=== PATIENT | male | born 1965 | race Caucasian/White ===

== ENCOUNTER 2017-01-15 06:58 | Emergency (ER) | payer MEDICAID ==
[~2017-01-15 06:58] MED LIST: ALBU8I INH; PRED20 PO
[2017-01-15 07:00] VITALS: BP 128/77; PULSE 70; RESP 20; TEMP 97.5; O2SAT 97
[2017-01-15 07:31] VITALS: O2SAT 98
[2017-01-15 07:32] LABS: AUTOMATED NEUTROPHIL # 7.4 TH/MM3 (1.8-7.7); BASOPHIL # 0.1 TH/MM3 (0-0.2); BASOPHIL % 0.7 % (0.0-2.0); EOSINOPHIL # 1.6 TH/MM3 (0-0.4); HEMATOCRIT 44.6 % (39.0-51.0); HEMO FLAGS DIFF FINAL; LYMPH % 21.9 % (9.0-44.0); LYMPHOCYTE # 2.9 TH/MM3 (1.0-4.8); MEAN CELL VOLUME 95.6 FL (80.0-100.0); MEAN CORPUSCULAR HEMOGLOBIN 32.2 PG (27.0-34.0); MEAN CORPUSCULAR HGB CONC 33.6 % (32.0-36.0); MONO % 8.8 % (0.0-8.0); NEUT % 56.6 % (16.0-70.0); PLATELET COUNT 266 TH/MM3 (150-450); RED BLOOD COUNT 4.66 MIL/MM3 (4.50-5.90); WHITE BLOOD COUNT 13.1 TH/MM3 (4.0-11.0)
[2017-01-15 07:33] LABS: BLOOD, URINE NEG (NEG); GLUCOSE,URINE NEG (NEG); KETONE, URINE NEG (NEG); NITRITE,URINE NEG (NEG); URINE COLOR YELLOW (YELLW/STRAW)
[2017-01-15 07:49] LABS: ALT (GPT) 25 U/L (12-78); ANION GAP 6 MEQ/L (5-15); AST (GOT) 16 U/L (15-37); BICARBONATE 26.6 MEQ/L (21.0-32.0); BLOOD UREA NITROGEN 18 MG/DL (7-18); CHLORIDE 108 MEQ/L (98-107); GLOMERULAR FILTRATION RATE 71 ML/MIN (>89); POTASSIUM 3.8 MEQ/L (3.5-5.1); SODIUM (NA) 141 MEQ/L (136-145)
[2017-01-15 07:51] LABS: COMMENT (UR) CULT NOT INDICATED; CULTURE IF INDICATED CULT NOT INDICATED
[2017-01-15 07:56] LABS: ALKALINE PHOSPHATASE 97 U/L (45-117); TOTAL BILIRUBIN ADULT 0.3 MG/DL (0.2-1.0)
--- NOTE | 2017-01-15 08:16 | RADRPT ---
EXAM DATE/TIME: 01/15/2017 07:53 [facility] COMPARISON: No previous studies available for comparison. INDICATIONS : Bilateral abdomen, flank pain for 2 weeks ORAL CONTRAST: No oral contrast ingested. RADIATION DOSE: 7.64 CTDIvol (mGy) MEDICAL HISTORY : Chronic obstructive pulmonary disease. SURGICAL HISTORY : None. ENCOUNTER: Initial ACUITY: 1 day PAIN SCALE: 5/10 LOCATION: Bilateral flank TECHNIQUE: Volumetric scanning of the abdomen and pelvis was performed. Using automated exposure control and ad justment of the mA and/or kV according to patient size, radiation dose was kept as low as reasonably achievable to obtain optimal diagnostic quality images. DICOM format image data is available electro nically for review and comparison. FINDINGS: LOWER LUNGS: The visualized lower lungs are clear. LIVER: Homogeneous density without lesion. There is no dilation of the biliary tree. No calcified gallston es. SPLEEN: Normal size without lesion. PANCREAS: Within normal limits. KIDNEYS: Normal in size and shape. There is no mass, stone, or hydronephrosis. ADRENAL GLANDS: Within normal limits. VASCULAR: There is no aortic aneurysm. BOWEL/MESENTERY: The stomach, small bowel, and colon demonstrate no acute abnormality. Normal appendix. There is no fr ee intraperitoneal air or fluid. ABDOMINAL WALL: Within normal limits. RETROPERITONEUM: There is no lymphadenopathy. BLADDER: No wall thickening or mass. REPRODUCTIVE: Within normal limits. INGUINAL: There is no lymphadenopathy or hernia. MUSCULOSKELETAL: Mild degenerative changes lower lumbar spine. CONCLUSION: 1. No renal calculi or hydronephrosis. 2. No acute inflammatory process. Sharath Suero MD on January 15, 2017 at 8:07 Board Certified Radiologist. This report was verified electronically.
--- NOTE | 2017-01-15 08:57 | PD ---
HPI Chief Complaint: Abdominal Pain Time Seen by Provider: 07:31 Travel History International Travel<30 days: No Contact w/Intl Traveler<30days: No Traveled to known affect area: No History of Present Illness HPI 51-year-old male presents with diffuse abdominal pain that is been present intermittently over the past couple of weeks. He denies specific modifying factors including eating and movement. He denies other associated symptoms. He denies seen a physician for this yet. He denies recurrent history of this. Duration is couple weeks. Severity is moderate. Quality is pressure like. PFSH Past Medical History Respiratory: Yes (copd) Past Surgical History Surgical History: No Previous Surgery Social History Alcohol Use: Yes Tobacco Use: Yes Substance Use: No Allergies-Medications (Allergen,Severity, Reaction): Coded Allergies: No Known Allergies (Unverified , 08/10/15) Reported Meds & Prescriptions Reported Meds & Active Scripts Active Deltasone 20 Mg Tab (Prednisone) 20 Mg Tab 60 Mg PO DAILY 5 Days Ventolin Hfa (Albuterol Sulfate) 8 Gm Aero 1 Puff INH Q4 Review of Systems Except as stated in HPI: all other systems reviewed are Neg Physical Exam Narrative GENERAL: Well-nourished, well-developed patient. SKIN: Warm and dry. HEAD: Normocephalic and atraumatic. EYES: No injection or drainage. ENT: No nasal drainage noted. NECK: Supple, trachea midline. CARDIOVASCULAR: Regular rate and rhythm RESPIRATORY: Breath sounds equal bilaterally. No accessory muscle use. GASTROINTESTINAL: Abdomen soft, tender to palpation right upper quadrant, nondistended. EXTREMITIES: No edema. BACK: Nontender without obvious deformity. NEUROLOGICAL: Awake and alert. Motor and sensory grossly within normal limits. Normal speech. Data Data Last Documented VS Vital Signs Date Time Temp Pulse Resp B/P Pulse Ox O2 Delivery O2 Flow Rate FiO2 01/15/17 10:45 76 18 146/75 100 01/15/17 07:00 97.5 Room Air Orders Complete Blood Count With Diff (01/15/17 07:16) Comprehensive Metabolic Panel (01/15/17 07:16) Urinalysis - C+S If Indicated (01/15/17 07:16) Lipase (01/15/17 07:16) Iv Access Insert/Monitor (01/15/17 07:16) Oximetry (7/20/17 07:16) Ct Abd/Pel W/O Iv Contrast (01/15/17 ) Us Abdomen Gallbladder (01/15/17 08:32) Labs Laboratory Tests Test 01/15/17 07:20 White Blood Count 13.1 TH/MM3 Red Blood Count 4.66 MIL/MM3 Hemoglobin 15.0 GM/DL Hematocrit 44.6 % Mean Corpuscular Volume 95.6 FL Mean Corpuscular Hemoglobin 32.2 PG Mean Corpuscular Hemoglobin 33.6 % Concent Red Cell Distribution Width 14.0 % Platelet Count 266 TH/MM3 Mean Platelet Volume 7.5 FL Neutrophils (%) (Auto) 56.6 % Lymphocytes (%) (Auto) 21.9 % Monocytes (%) (Auto) 8.8 % Eosinophils (%) (Auto) 12.0 % Basophils (%) (Auto) 0.7 % Neutrophils # (Auto) 7.4 TH/MM3 Lymphocytes # (Auto) 2.9 TH/MM3 Monocytes # (Auto) 1.2 TH/MM3 Eosinophils # (Auto) 1.6 TH/MM3 Basophils # (Auto) 0.1 TH/MM3 CBC Comment DIFF FINAL Differential Comment Urine Color YELLOW Urine Turbidity CLEAR Urine pH 5.0 Urine Specific [place] 1.018 Urine Protein NEG mg/dL Urine Glucose (UA) NEG mg/dL Urine Ketones NEG mg/dL Urine Occult Blood NEG Urine Nitrite NEG Urine Bilirubin NEG Urine Urobilinogen LESS THAN 2.0 MG/DL Urine Leukocyte Esterase NEG Urine RBC LESS THAN 1 /hpf Urine WBC 1 /hpf Microscopic Urinalysis Comment CULT NOT INDICATED Sodium Level 141 MEQ/L Potassium Level 3.8 MEQ/L Chloride Level 108 MEQ/L Carbon Dioxide Level 26.6 MEQ/L Anion Gap 6 MEQ/L Blood Urea Nitrogen 18 MG/DL Creatinine 1.09 MG/DL Estimat Glomerular Filtration 71 ML/MIN Rate Random Glucose 132 MG/DL Calcium Level 8.2 MG/DL Total Bilirubin 0.3 MG/DL Aspartate Amino Transf 16 U/L (AST/SGOT) Alanine Aminotransferase 25 U/L (ALT/SGPT) Alkaline Phosphatase 97 U/L Total Protein 7.0 GM/DL Albumin 3.6 GM/DL Lipase 131 U/L [facility] Medical Decision Making Medical Screen Exam Complete: Yes Emergency Medical Condition: Yes Medical Record Reviewed: Yes (past history confirmed) Interpretation(s) CBC & BMP Diagram 01/15/17 07:20 Last 24 hours Impressions Abdomen/Pelvis CT 01/15/17 0000 Signed Impressions: Service Date/Time: December 07:53 - CONCLUSION: 1. No renal calculi or hydronephrosis. 2. No acute inflammatory process. Sharath Suero MD no acute Differential Diagnosis Kidney stone, cholelithiasis, cholecystitis, gastritis Narrative Course Will check blood work, urinalysis, CT scan abdominal pelvis and reevaluate ED workup without emergent process given location of pain will check gallbladder ultrasound to rule out cholecystitis Ultrasound without emergent process,Patient denies any new complaints, all questions answered. Patient knows that follow up is incumbent on them and to return to the emergency room immediately if new or worsening symptoms develop. Patient given strict return precautions, vitals reviewed and are normal, agrees to further workup as an outpatient. Family now at bedside Diagnosis Primary Impression: Abdominal pain Qualified Code: R10.10 - Pain of upper abdomen Patient Instructions: General Instructions Additional Instructions: Return as needed, Tylenol as needed for pain, follow with primary for recheck this week Med/Other Pt SpecificInfo: No Change to Meds Disposition: 01 DISCHARGE HOME Condition: Stable Darline Jacome MD Jan 15, 2017 08:57
--- NOTE | 2017-01-15 10:33 | RADRPT ---
EXAM DATE/TIME: 01/15/2017 09:45 [facility] COMPARISON: CT ABDOMEN & PELVIS W/O CONTRAST, January 15, 2017, 7:53. INDICATIONS : Right upper quadrant pain. MEDICAL HISTORY : Chronic obstructive pulmonary disease. SURGICAL HISTORY : None. ENCOUNTER: Initial ACUITY: 1 day PAIN SCORE: 5/10 LOCATION: Right upper quadrant MEASUREMENTS: LIVER: 16.1 cm length COMMON DUCT: 7 mm RIGHT KIDNEY: 11.4 x 5.3 x 6.0 cm FINDINGS: LIVER: Normal echotexture without focal lesion or ductal dilatation. COMMON DUCT: No intraluminal mass or stone visualized. GALLBLADDER: Contains no stones, demonstrates no wall thickening or pericholecystic fluid. PANCREAS: The visualized portions are within normal limits. RIGHT KIDNEY: No evidence of hydronephrosis, stone, or mass. CONCLUSION: Normal examination. Fredi Abraham MD on January 15, 2017 at 10:31 Board Certified Radiologist. This report was verified electronically.
[2017-01-15 10:45] VITALS: BP 146/75
== END 2017-01-15 10:46 | disposition home or self-care (01) ==
LOC: NEPE 06:58
DX: R10.11 Right upper quadrant pain (principal)
CPT/HCPCS: 74176; 76705; 80053; 81001; 83690; 85025; 99285

== ENCOUNTER 2017-12-21 23:18 | Emergency (ER) | payer MEDICAID ==
[~2017-12-21] VITALS: Ht 193 cm; Wt 91.0 kg
[2017-12-22 00:09] VITALS: BP 117/64; PULSE 69; RESP 16; TEMP 97.6; O2SAT 97
[2017-12-22] MEDS ORDERED: UMEC1AER INH (01:13)
[2017-12-22] MEDS ORDERED: MELO7.5T27 PO (01:13)
[2017-12-22] MEDS ORDERED: IBUP1TAB7 PO ×2 (01:13→04:02)
[2017-12-22] MEDS ORDERED: PRIL20TA2 PO (01:14)
[2017-12-22] MEDS ORDERED: CYCL10TA PO (04:02)
[2017-12-22] MEDS ORDERED: PERC7.5T13 PO (04:02)
== END 2017-12-22 00:39 | disposition left against medical advice (07) ==
LOC: NED 23:18
DX: M54.9 Dorsalgia, unspecified (principal)
CPT/HCPCS: 99281

== ENCOUNTER 2017-12-22 01:01 | Emergency (ER) | payer MEDICAID ==
[~2017-12-22] VITALS: Ht 188 cm; Wt 88.7 kg
[2017-12-22 01:07] VITALS: BP 124/80; PULSE 65; RESP 18; TEMP 97.5; O2SAT 98
[2017-12-22] MEDS ORDERED: UMEC1AER INH (01:13)
[2017-12-22] MEDS ORDERED: IBUP1TAB7 PO ×2 (01:13→04:02)
[2017-12-22] MEDS ORDERED: MELO7.5T27 PO (01:13)
[2017-12-22] MEDS ORDERED: PRIL20TA2 PO (01:14)
[2017-12-22] MEDS ORDERED: PROCHLORPERAZINE INJ 10 MG/2 ML VIAL IV PUSH ONE (02:45)
[2017-12-22] MEDS ORDERED: KETOROLAC TROMETHAMINE 60 MG/2 ML (IM) VIAL IM ONE (02:45)
[2017-12-22] MEDS ORDERED: ORPHENADRINE INJ 60 MG/2 ML AMP IM ONE (02:45)
[2017-12-22] MEDS ORDERED: HYDROmorphone HCL PF 2 MG/ML VIAL IV PUSH ONE (02:45)
--- NOTE | 2017-12-22 02:50 | PD ---
HPI Chief Complaint: Back/ Neck Pain or Injury Time Seen by Provider: 02:45 Travel History International Travel<30 days: No Contact w/Intl Traveler<30days: No Traveled to known affect area: No History of Present Illness HPI The patient is a 52-year-old male that complains of low back pain radiating down his left leg to the foot since 10:30 AM yesterday. He says in 1987 he fell 32 feet and has had some back problems since. He states the pain on the right shoots down to his knee. He denies any bladder or bowel discomfort. The pain is sharp and a 9/10. PFSH Past Medical History Arthritis: Yes (RIGHT KNEE, LEFT WRIST) COPD: Yes Herniated Disk: Yes ("LOWER LEVEL, 4 OF THEM, ALSO IN MY NECK") Medical other: Yes (1987: "WAREHOUSE FALL FROM 32 FEET, BEDRIDDEN FOR 6 MONTHS ") Neurologic: Yes ([facility] WITH FALL) Respiratory: Yes Immunizations Current: Yes Tetanus Vaccination: > 5 Years Influenza Vaccination: No Past Surgical History Tonsillectomy: Yes Social History Alcohol Use: Yes (occ) Tobacco Use: Yes (1 PPD) Substance Use: No Allergies-Medications (Allergen,Severity, Reaction): Coded Allergies: No Known Allergies (Unverified Adverse Reaction, Unknown, 12/22/17) Reported Meds & Prescriptions Reported Meds & Active Scripts Active Reported Prilosec (Omeprazole Magnesium) 20 Mg Tab 1 Tab PO DAILY Meloxicam 7.5 Mg Tab 7.5 Mg PO DAILY Ibuprofen 800 Mg Tab 800 Mg PO Q8H PRN Anoro Ellipta Inh (Umeclidinium/Vilanterol) 62.5-25 Mcg/Act Aero 1 Puff INH DAILY Review of Systems Except as stated in HPI: all other systems reviewed are Neg Physical Exam Narrative GENERAL: The patient is alert, oriented 3 in severe distress with his low back pain. He does not want to move from a sitting position. His vital signs are normal. SKIN: Focused skin assessment warm/dry. HEAD: Atraumatic. Normocephalic. EYES: Pupils equal and round. No scleral icterus. No injection or drainage. ENT: No nasal bleeding or discharge. Mucous membranes pink and moist. NECK: Trachea midline. No JVD. CARDIOVASCULAR: Regular rate and rhythm. No murmur appreciated. RESPIRATORY: No accessory muscle use. Clear to auscultation. Breath sounds equal bilaterally. GASTROINTESTINAL: Abdomen soft, non-tender, nondistended. Hepatic and splenic margins not palpable. MUSCULOSKELETAL: No obvious deformities. No clubbing. No cyanosis. No edema. There is tenderness on the bilateral lumbar spine which is diffuse. There is also tenderness on the posterior spinous processes of the lower lumbar spine. Straight leg raising is positive at 10, DTRs are 0+1 bilaterally both patella and Achilles and pinprick is normal. NEUROLOGICAL: Awake and alert. No obvious cranial nerve deficits. Motor grossly within normal limits. Normal speech. PSYCHIATRIC: Appropriate mood and affect; insight and judgment normal. Data Data Last Documented VS Vital Signs Date Time Temp Pulse Resp B/P (MAP) Pulse Ox O2 Delivery O2 Flow Rate FiO2 12/22/17 03:21 67 16 105/70 (82) 99 Nasal Cannula 2.00 12/22/17 01:07 97.5 Orders Orders Ketorolac Inj (Toradol Inj) (12/22/17 02:45) Orphenadrine Inj (Norflex Inj) (12/22/17 02:45) Hydromorphone Pf Inj (Dilaudid Pf Inj) (12/22/17 02:45) Prochlorperazine Inj (Compazine Inj) (12/22/17 02:45) Sodium Chlor 0.9% 1000 Ml Inj (Ns 1000 M (12/22/17 03:00) Ct Lumb Spine W/O Contrast (12/22/17 02:50) MDM Medical Decision Making Medical Screen Exam Complete: Yes Emergency Medical Condition: Yes Medical Record Reviewed: Yes Interpretation(s) The CT of the lumbar spine shows disc bulges at L3-L4 and L4-L5 levels with mild stenosis. Also noted is right lateral recess disc protrusion at the L5-S1 level. Differential Diagnosis Herniated nucleus pulposus, fracture back, acute lumbar strain Narrative Course The patient has herniated nucleus pulposus at L3-4, L4-5 with mild stenosis and a disc protrusion at the L5-S1 level. None of these need urgent surgical resection. The patient is comfortable and has been sleeping. Plan: The patient will get a work excuse for 7 days and Percocet 7.5 for pain as well as Motrin 800 mg 3 times daily and Flexeril 10 mg 3 times daily. He should not drink alcohol or drive on these medications. Med/Other Pt SpecificInfo: Prescription(s) given Scripts Ibuprofen (Ibuprofen) 800 Mg Tab 800 MG PO TID, #44 TAB 0 Refills Prov: Alfonzo Church MD 12/22/17 Cyclobenzaprine (Flexeril) 10 Mg Tab 10 MG PO TID for Muscle Spasm, #30 TAB 0 Refills Prov: Alfonzo Church MD 12/22/17 Oxycodone-Acetaminophen (Percocet) 7.5-325 mg Tab 1 TAB PO Q4H Y for PAIN, #21 TAB 0 Refills Prov: Alfonzo Church MD 12/22/17 Disposition: 01 DISCHARGE HOME Condition: Stable Alfonzo Church MD Dec 22, 2017 02:50
[2017-12-22 03:00] VITALS: PULSE 65; O2SAT 95
[2017-12-22] MEDS ORDERED: SODIUM CHLOR 0.9% 1000 ML INJ 1,000 ML IV SCH (03:00)
[2017-12-22 03:21] VITALS: BP 105/70; PULSE 67; RESP 16; O2SAT 99
--- NOTE | 2017-12-22 03:53 | RADRPT ---
EXAM DATE: 12/22/2017 3:26 AM EDT AGE/SEX: 52 years / Male INDICATIONS: Lumbar radiculopathy. CLINICAL DATA: This is the patient's initial encounter. Patient reports that signs and symptoms have been present for 1 day and indicates a pain score of 9/10. MEDICAL/SURGICAL HISTORY: None. None. RADIATION DOSE: 35.14 CTDI (mGy) COMPARISON: No prior exams available for comparison. TECHNIQUE: Contiguous axial images were acquired with a multirow detector CT scanner without contras t. Multiplanar reconstructions in the sagittal and coronal plane were also performed. Using automate d exposure control and adjustment of the mA and/or kV according to patient size, radiation dose was k ept as low as reasonably achievable to obtain optimal diagnostic quality images. DICOM format image data is available electronically for review and comparison. FINDINGS: Vertebrae: Normal vertebral body height. Alignment: Normal. No subluxation. T12-L1: The thecal sac has a normal diameter. No evidence of disc bulge or protrusion. The neural foramina are patent bilaterally. L1-L2: The thecal sac has a normal diameter. No evidence of disc bulge or protrusion. The neural f oramina are patent bilaterally. L2-L3: The thecal sac has a normal diameter. No evidence of disc bulge or protrusion. The neural f oramina are patent bilaterally. L3-L4: There is mild diffuse disc bulge causing a mild impression on the anterior aspect of the thec al sac.. Anterior marginal osteophytes are present. The neural foramina are patent bilaterally. L4-L5: There is moderate diffuse disc bulge. There is mild narrowing of thecal sac. The neural rhonda goldie are patent bilaterally. L5-S1: There is a mild focal right lateral recess disc protrusion causing impression on the anterior right lateral aspect of the thecal sac. The neural foramina are patent bilaterally. CONCLUSION: 1. Disc bulges at the L3-L4 and L4-L5 levels with mild stenosis. 2. Right lateral recess disc protrusion at the L5-S1 level. Electronically signed by: Karthikeyan Fonseca MD 12/22/2017 3:52 AM EDT
[2017-12-22] MEDS ORDERED: PERC7.5T13 PO (04:02)
[2017-12-22] MEDS ORDERED: CYCL10TA PO (04:02)
[2017-12-22 04:23] VITALS: BP 110/74; PULSE 65; RESP 16; O2SAT 96
== END 2017-12-22 04:30 | disposition home or self-care (01) ==
LOC: PHED 01:01
DX: M51.27 Other intervertebral disc displacement, lumbosacral region (principal); F17.200 Nicotine dependence, unspecified, uncomplicated
CPT/HCPCS: 72131; 96361; 96372; 96374; 96375; 99284; J0780; J1170; J1885; J2360; J7030